=== PATIENT | female | born 1965 | race Caucasian/White ===

== ENCOUNTER 2018-11-05 10:37 | Emergency (ER) | payer OTHER, SELFPAY ==
[2018-11-05 11:39] LABS: Absolute Lymphocytes (CBC) 3.1 K/uL (0.7-4.9); Absolute Monocytes 0.6 K/uL (0.1-1.3); Absolute Neutrophil 3.5 K/uL (1.8-8.0); Basophils % 1.2 % (0-1.3); Eosinophils % 4.5 % (0-4.4); Hematocrit 39.9 % (36.0-45.0); Lymphocytes % 41.2 % (15.3-44.8); MPV 7.8 fL (7.6-11.3); Monocytes % 7.5 % (3.3-12.3); RBC Red Blood Cell Count 4.37 M/uL (3.86-4.86)
[2018-11-05 11:55] LABS: Urine Blood NEGATIVE (NEG); Urine Glucose NEGATIVE (NEG); Urine Protein NEGATIVE (NEG); Urine Specific Gravity 1.025 (1.005-1.030); Urine pH 5.5 (5.0-7.0)
[2018-11-05 12:01] LABS: ALT/SGPT 17 U/L (12-78); AST/SGOT 11 U/L (15-37); Albumin 3.2 g/dL (3.4-5.0); Alkaline Phosphatase 119 U/L (45-117); BUN Blood Urea Nitrogen 11 mg/dL (7-18); Bicarbonate 29 mmol/L (21-32); Bilirubin Direct < 0.1 mg/dL (0-0.2); Bilirubin Total 0.3 mg/dL (0.2-1.0); Glucose Level 105 mg/dL (74-106); Lipase 237 U/L (73-393); Potassium 3.6 mmol/L (3.5-5.1); Protein, Total 7.3 g/dL (6.4-8.2); Sodium Level 141 mmol/L (136-145)
--- NOTE | 2018-11-05 12:06 | EDPHYS ---
Physician Documentation [facility] Name: Alma Wu Age: 53 yrs Sex: Female : 1965 Arrival Date: 11/05/2018 Time: 10:39 Bed 19 Private MD: Cesar Last E ED Physician Ismael Champion HPI: 11/05 12:00 This 53 yrs old Female presents to ER via Ambulatory with complaints of ma2 Abdominal Swelling. 12:00 The patient presents with abdominal distention. Onset: The symptoms/episode ma2 began/occurred gradually, 1 year(s) ago. Associated signs and symptoms: none. Pertinent negatives: nausea and vomiting, chest pain, constipation, dysuria, vaginal discharge, vomiting blood. The symptoms are described as vague, waxing/waning. Severity of pain: At its worst the pain was very mild in the emergency department the pain is unchanged. The patient has not experienced similar symptoms in the past. 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 - Social history:: Smoking status: Patient/guardian denies using tobacco, Patient/guardian denies using alcohol, street drugs, The patient lives with family. - Ebola Screening: : No symptoms or risks identified at this time. - Family history:: not pertinent. ROS: 12:00 Constitutional: Negative for fever, chills, and weight loss, Eyes: Negative for injury, ma2 pain, redness, and discharge, Cardiovascular: Negative for chest pain, palpitations, and edema, Respiratory: Negative for shortness of breath, cough, wheezing, and pleuritic chest pain. 12:00 Abdomen/GI: Positive for abdominal distension, Negative for nausea, vomiting, and diarrhea. 12:00 All other systems are negative. Exam: 12:00 Constitutional: This is a well developed, well nourished patient who is awake, alert, ma2 and in no acute distress. Chest/axilla: Normal chest wall appearance and motion. Nontender with no deformity. No lesions are appreciated. Cardiovascular: Regular rate and rhythm with a normal S1 and S2. No gallops, murmurs, or rubs. Normal PMI, no JVD. No pulse deficits. Respiratory: Lungs have equal breath sounds bilaterally, clear to auscultation and percussion. No rales, rhonchi or wheezes noted. No increased work of breathing, no retractions or nasal flaring. Abdomen/GI: Soft, non-tender, with normal bowel sounds. No distension or tympany. No guarding or rebound. No evidence of tenderness throughout. MS/ Extremity: Pulses equal, no cyanosis. Neurovascular intact. Full, normal range of motion. Neuro: Awake and alert, GCS 15, oriented to person, place, time, and situation. Cranial nerves II-XII grossly intact. Motor strength 5/5 in all extremities. Sensory grossly intact. Cerebellar exam normal. Normal gait. Vital Signs: 10:50 BP 150 / 75; Pulse 95; Resp 16; Temp 97.7; Pulse Ox 100% on R/A; Weight 95.25 kg; hb Height 5 ft. 7 in. (170.18 cm); Pain 0/10; 11:34 BP 133 / 81; Pulse 90; Resp 18; Temp 98.1(O); Pulse Ox 100% on R/A; mh5 12:33 BP 138 / 83; Pulse 88; Resp 17; Temp 98.2(O); Pulse Ox 100% on R/A; Pain 0/10; rb1 10:50 Body Mass Index 32.89 (95.25 kg, 170.18 cm) hb MDM: 10:43 Patient medically screened. ma2 12:00 Differential diagnosis: gastritis, pancreatitis, urinary tract infection. Data ma2 reviewed: vital signs, nurses notes. Counseling: I had a detailed discussion with the patient and/or guardian regarding: the historical points, exam findings, and any diagnostic results supporting the discharge/admit diagnosis, the presence of at least one elevated blood pressure reading (>120/80) during this emergency department visit, the need for outpatient follow up. 11/05 11:08 Order name: Basic Metabolic Panel; Complete Time: 12:04 il2 11/05 11:08 Order name: CBC with Diff; Complete Time: 11:52 [facility] 11/05 11:08 Order name: Creatinine for Radiology; Complete Time: 12:04 il2 11/05 11:08 Order name: Hepatic Function; Complete Time: 12:04 [facility] 11/05 11:08 Order name: Lipase; Complete Time: 12:04 ma2 11/05 11:43 Order name: Urine Dipstick--Ancillary (enter results); Complete Time: 12:04 bd 11/05 11:08 Order name: IV Saline Lock; Complete Time: 11:34 il2 11/05 11:08 Order name: Labs collected and sent; Complete Time: 11:34 il2 11/05 11:08 Order name: Urine Dipstick-Ancillary (obtain specimen); Complete Time: 11:30 il2 11/05 11:43 Order name: Urine --Ancillary (enter results); Complete Time: 12:04 bd Administered Medications: No medications were administered Disposition: 11/05/18 12:05 Discharged to Home. Impression: Abdominal and pelvic pain. - Condition is Stable. - Discharge Instructions: Abdominal Pain, Adult. - Prescriptions for Tylenol- Codeine #3 300-30 mg Oral Tablet - take 2 tablet by ORAL route every 6 hours As needed; 30 tablet. - Medication Reconciliation Form, Thank You Letter, Antibiotic Education, Prescription Opioid Use form. - Follow up: Sharif rBight MD; When: Tomorrow; Reason: Continuance of care. Signatures: Dispatcher [employer] EDRosa Elena Robertson RN RN rb1 Breonna Christy RN RN Ismael Champion MD MD ma2 Corrections: (The following items were deleted from the chart) 12:34 12:05 11/05/2018 12:05 Discharged to Home. Impression: Abdominal and pelvic pain. rb1 Condition is Stable. Forms are Medication Reconciliation Form, Thank You Letter, Antibiotic Education, Prescription Opioid Use. Follow up: Sharif Bright; When: Tomorrow; Reason: Continuance of care. ma2
--- NOTE | 2018-11-05 12:06 | ER ---
Nurse's Notes [facility] Name: Alma Wu Age: 53 yrs Sex: Female : 1965 Arrival Date: 11/05/2018 Time: 10:39 Bed 19 Private MD: Cesar Last E Diagnosis: Abdominal and pelvic pain Presentation: 11/05 10:45 Initial Sepsis Screen: Does the patient meet any 2 criteria? No. Patient's initial rb1 sepsis screen is negative. Does the patient have a suspected source of infection? No. Patient's initial sepsis screen is negative. 10:48 Presenting complaint: Intermittent lower abdominal cramping, nausea, and abdominal hb swelling x 2 months. LMP 4 years ago, concerned she may be , reports "feeling movement.". Transition of care: patient was not received from another setting of care. Onset of symptoms is unknown. Risk Assessment: Do you want to hurt yourself or someone else? Patient reports no desire to harm self or others. Care prior to arrival: None. 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 - Social history:: Smoking status: Patient/guardian denies using tobacco, Patient/guardian denies using alcohol, street drugs, The patient lives with family. - Ebola Screening: : No symptoms or risks identified at this time. - Family history:: not pertinent. Screenin:45 Abuse screen: Denies threats or abuse. Nutritional screening: No deficits noted. rb1 Tuberculosis screening: No symptoms or risk factors identified. Fall Risk None identified. Assessment: 10:45 General: Appears in no apparent distress. comfortable, Behavior is calm, cooperative, rb1 Denies fever. Pain: Denies pain. Neuro: Level of Consciousness is awake, alert, obeys commands, Oriented to person, place, time, situation. Cardiovascular: Capillary refill < 3 seconds is brisk in bilateral fingers. Respiratory: Airway is patent Respiratory effort is even, unlabored, Respiratory pattern is regular, symmetrical. GI: Bowel sounds present X 4 quads. Abd is soft X 4 quads Reports cramping. : No signs and/or symptoms were reported regarding the genitourinary system. Derm: Skin is pink, warm \\T\\ dry. Musculoskeletal: Range of motion: intact in all extremities. 11:45 Reassessment: Patient appears in no apparent distress at this time. No changes from rb1 previously documented assessment. 12:21 Reassessment: Patient appears in no apparent distress at this time. Patient and/or rb1 family updated on plan of care and expected duration. Pain level reassessed. Patient is alert, oriented x 3, equal unlabored respirations, skin warm/dry/pink. Daughter at bedside. Patient denies pain at this time. Vital Signs: 10:50 BP 150 / 75; Pulse 95; Resp 16; Temp 97.7; Pulse Ox 100% on R/A; Weight 95.25 kg; hb Height 5 ft. 7 in. (170.18 cm); Pain 0/10; 11:34 BP 133 / 81; Pulse 90; Resp 18; Temp 98.1(O); Pulse Ox 100% on R/A; mh5 12:33 BP 138 / 83; Pulse 88; Resp 17; Temp 98.2(O); Pulse Ox 100% on R/A; Pain 0/10; rb1 10:50 Body Mass Index 32.89 (95.25 kg, 170.18 cm) hb ED Course: 10:39 Patient arrived in ED. as 10:39 Cesar Last MD is Private Physician. as 10:43 Ismael Champion MD is Attending Physician. ma2 10:50 Triage completed. hb 10:50 Arm band placed on. hb 11:09 Rosa Elena Condon, TOMASA is Primary Nurse. rb1 11:32 Initial lab(s) drawn, by ri, sent to lab. Inserted saline lock: 22 gauge in right 5 antecubital area, using aseptic technique. Blood collected. 11:33 Patient has correct armband on for positive identification. Bed in low position. Call [facility] light in reach. Side rails up X 1. Adult w/ patient. Pulse ox on. NIBP on. 12:04 Sharif Bright MD is Referral Physician. ma2 12:34 No provider procedures requiring assistance completed. IV discontinued, intact, rb1 bleeding controlled, No redness/swelling at site. Pressure dressing applied. Administered Medications: No medications were administered Outcome: 12:05 Discharge ordered by . cori 12:34 Patient left the ED. rb1 12:34 Discharged to home ambulatory, with family. rb1 12:34 Condition: stable 12:34 Discharge instructions given to patient, Instructed on discharge instructions, follow up and referral plans. medication usage, Demonstrated understanding of instructions, follow-up care, medications, Prescriptions given X 1. Signatures: Christal Clark Rebecca, RN RN rb1 Breonna Christy RN RN Lizbeth Clark [facility] Ismael Champion MD MD ma2
== END 2018-11-05 12:34 | disposition home or self-care (01) ==
LOC: ER 10:37
DX: R10.2 Pelvic and perineal pain (principal); R14.0 Abdominal distension (gaseous)
CPT/HCPCS: 36415; 80048; 80076; 81003; 81025; 83690; 85025; 99284